=== PATIENT | male | born 1960 | race Caucasian/White ===

== ENCOUNTER 2016-09-06 14:13 | Emergency (ER) | payer BC, OTHER ==
[2016-09-06 14:25] VITALS: TEMP 97.9; O2SAT 97
[2016-09-06] MEDS ORDERED: Oxycodone/Acetaminophen 5/325 mg Tab PO STA (14:53)
--- NOTE | 2016-09-06 14:55 | C.PDOC ---
History Of Present Illness Patient is a 56 y/o male that presents to the ED for evaluation of left shoulder , and right low back pain that he developed 1 week ago. Patient states that pain in non-radiating, and worse with movement. Pt admits to physical work at his job. Also, states he has rash to right side, and right flank area. Otherwise , patient denies any fever, chills, CP, SOB, dyspnea, diaphoresis, palpitation, abdominal pain, n/v/d, sensory changes, weakness/numbness, dysuria, hematuria, urinary frequency, incontinence, saddle anesthesia, denies weakness, sensory or vascular deficits to B/L LEs, or any other associated symptoms at this time. Time Seen by Provider: 09/06/16 14:38 Chief Complaint (Nursing): Back Pain History Per: Patient History/Exam Limitations: no limitations Onset/Duration Of Symptoms: Days (1 week) Current Symptoms Are (Timing): Still Present Quality Of Discomfort: "Pain" Associated Symptoms: None. denies: Incontinence, New Weakness, New Numbness Exacerbating Factor(s): Movement Recent travel outside of the [place]: No Additional History Per: Patient Past Medical History Reviewed: Historical Data, Nursing Documentation, Vital Signs Vital Signs: Last Vital Signs Temp 97.9 F 09/06/16 14:23 Pulse 70 09/06/16 14:23 Resp 18 09/06/16 14:23 BP 153/83 H 09/06/16 14:23 Pulse Ox 97 09/06/16 15:16 - Medical History PMH: HTN Surgical History: Cholecystectomy (1993) Family History: States: Unknown Family Hx - Social History Hx Tobacco Use: Yes Hx Alcohol Use: No Hx Substance Use: No - Immunization History Hx Pneumococcal Vaccination: Yes Review Of Systems Except As Marked, All Systems Reviewed And Found Negative. Constitutional: Negative for: Fever, Chills Gastrointestinal: Negative for: Nausea, Vomiting, Abdominal Pain, Diarrhea, Constipation Genitourinary: Negative for: Dysuria, Frequency, Incontinence, Hematuria Musculoskeletal: Positive for: Shoulder Pain (left), Back Pain (right low) Skin: Positive for: Rash (right side of body and right flank). Negative for: Bruising Neurological: Negative for: Weakness, Numbness Physical Exam - Physical Exam Appears: Well, No Acute Distress Skin: Normal Color, Warm, Dry, Rash (eyrthematous vesicular rash in group over Right side extend Right flank area overlying T11 dermatome. No evidence of cellulitis.) Eye(s): bilateral: PERRL Neck: Supple Cardiovascular: Rhythm Regular Respiratory: No Stridor, No Wheezing Gastrointestinal/Abdominal: Soft, No Tenderness, No Distention, No Guarding Back: No CVA Tenderness Extremity: Tenderness (Left shoulder tenderness over superior aspect with mild discomfort to shoulder extension and adbuction. No palpable deformity, no skin changes. no neurovascular deficits.), No Deformity Neurological/Psych: Oriented x3, Normal Speech, Normal Motor, Normal Sensation, Normal Reflexes ED Course And Treatment O2 Sat by Pulse Oximetry: 97 (RA) Pulse Ox Interpretation: Normal - Other Rad Left shoulder X-Ray: Interpreted by Me, Viewed By Me Interpretation: (-) acute fx or dislocation, (+) DJD, mild Progress Note: Left shoulder x-ray ordered and reviewed. Patient was treated with Percocet, Acyclovir, and Prednisone. On re-eval, pt reports feeling better , with improvement of pain. Afebrile, hemodynamicaly stable. Neurologicaly intact. Xray review and appears without acute abnormalities. Pt has clinical findings c/w Left shoulder tendonitis, Right side shingles without evidence of superimposed infection. Pt advised. ref. to f/u with PMD, Ortho in2 -3 days for re-eavl. return to Ed if any worsening or new changes. Disposition Counseled Patient/Family Regarding: Studies Performed, Diagnosis, Need For Followup, Rx Given - Disposition Referrals: [facility] [Outside] Disposition: HOME/ ROUTINE Disposition Time: 15:40 Condition: STABLE Additional Instructions: LIght duty to Left shoulder Avoid lifting left arm, heavy lifting, pushing, etc. Take medication as prescribed Follow up with PMD and Ortho in 2-3 days for re-evaluation. Return to Ed if any worsening or new changes. Prescriptions: oxyCODONE/Acetaminophen [Percocet 5/325 mg Tab] 1 tab PO BID PRN #7 tab PRN Reason: Pain Prednisone [Deltasone] 40 mg PO DAILY #6 tablet valACYclovir [Valtrex] 1 gm PO TID #21 tab Instructions: Rotator Cuff Injury (ED), Shingles (ED) Forms: Work Excuse - Clinical Impression Clinical Impression: Shoulder tendonitis, Herpes zoster - PA / [employer] / Resident Statement MD/DO has reviewed & agrees with the documentation as recorded. - Scribe Statement The provider has reviewed the documentation as recorded by the Christos Harding All medical record entries made by the Christos were at my direction and personally dictated by me. I have reviewed the chart and agree that the record accurately reflects my personal performance of the history, physical exam, medical decision making, and the department course for this patient. I have also personally directed, reviewed, and agree with the discharge instructions and disposition.
[2016-09-06] MEDS ORDERED: Oxycodone/Acetaminophen 5/325 mg Tab ONE (14:59)
--- NOTE | 2016-09-06 15:58 | RAD ---
PROCEDURE: Radiographs of the Left Shoulder HISTORY: Pain COMPARISON: Comparison radiographs left shoulder dated knee 05/30/2014 FINDINGS: BONES: No evidence of acute displaced fracture nor dislocation. JOINTS: Minimal degenerative changes of the left acromioclavicular joint. . SOFT TISSUES: No abnormal soft tissue calcifications. No subcutaneous emphysema or radiopaque foreign bodies OTHER FINDINGS: None. IMPRESSION: No evidence of acute displaced fracture nor dislocation.
[2016-09-06 16:06] VITALS: BP 149/87; PULSE 74; RESP 16
== END 2016-09-06 16:06 | disposition home or self-care (01) ==
LOC: C.ER 14:13
DX: B02.9 Zoster without complications (principal); M75.92 Shoulder lesion, unspecified, left shoulder